=== PATIENT | female | born 1950 | race Caucasian/White ===

== ENCOUNTER 2016-05-31 09:45 | Emergency (ER) | payer MEDICARE, MEDICAID ==
--- NOTE | 2016-05-31 10:04 | ERNOTE ---
Neuro HPI ER Record Presenting Symptoms: confusion Time Seen by Provider: 05/31/16 09:45 Source: patient Exam Limitations: physical impairment Immunizations: IMMUNIZATION HX History of Influenza Vaccine Yes Allergies/Adverse Reactions: Allergies Allergy/AdvReac Type Severity Reaction Status Date / Time hydrochlorothiazide Allergy Other Verified 05/31/16 10:15 meloxicam Allergy Headache Verified 05/31/16 10:15 Home Medications: HOME MEDICATIONS Alprazolam 0.25 mg PO DAILY PRN 05/16/13 [Last Taken Unknown] Aspirin 81 mg PO DAILY 05/16/13 [Last Taken Unknown] Atorvastatin Calcium [Lipitor] 40 mg PO HS 05/31/16 [Last Taken Unknown] Cholecalciferol (Vitamin D3) [Vitamin D3] 2,000 unit PO DAILY 05/31/16 [Last Taken Unknown] Escitalopram Oxalate [Lexapro] 20 mg PO DAILY 05/31/16 [Last Taken Unknown] Lisinopril [Zestril] 40 mg PO DAILY 05/31/16 [Last Taken Unknown] Multivits,Ca,Minerals/Iron/FA [Women's Daily Formula Caplet] 1 each PO DAILY [Last Taken Unknown] amLODIPine BESYLATE [Norvasc] 7.5 mg PO DAILY 05/31/16 [Last Taken Unknown] - History of Present Illness Narrative: [facility] a [facility], then came to the radiology department for a mammogram where she seemed to be confused, the patient initially refused to be seen in the ER but then agreed to be evaluated. She is very vague about any complaints, can't give any focal concerns,maybe slight droop of her left eye lid. She had a CVA in 2012 that affected her vision , had a coil placed for an aneurysm at another occasion. Her fiance states that sometimes she acts like this when she needs to take a nap Date (Duration): 05/31/16 - Character of Deficits Baseline Cognition: Present: alert, oriented x 4 Baseline Gait: Present: walks w/o assistance Prior Treament: Reports: recently seen Review of Systems - Review of Systems Constitutional: Absent: recent illness EYE: Present: vision changes - chronic ENT: Absent: sore throat Respiratory: Absent: shortness of breath, cough Cardiology: Absent: chest pain Gastrointestinal/Abdominal: Absent: nausea, abdominal pain Genitourinary: Present: no symptoms reported Skin: Absent: rash - Patient's Past Medical History Patient History - Medical: Other - Vision loss Patient History - Cardiac/Respiratory: CVA/Stroke, Hypertension, Hyperlipidemia Patient History - Cancer: No Hx of Cancer Patient History - Surgical Procedures: Other - Intracranial stent and coil Patient History - Other: None - Social History Living Situations: home Smoking Status: Current every day smoker Have you smoked in the past 12 months: Yes - Immunizations History of Influenza Vaccine: Yes Physical Exam - Physical Exam General Appearance: Present: wd/wn, alert, no apparent distress Eye Exam: Normal inspection: bilateral, PERRL: bilateral, EOMI: bilateral Ears, Nose, Throat: Present: normal ENT inspection, normal pharynx Neck: Present: normal inspection, nontender, supple Respiratory: Present: no respiratory distress, normal breath sounds, no accessory muscle use, lungs clear Cardiovascular/Chest: Present: regular rate, rhythm, no murmur Gastrointestinal/Abdominal: Present: nontender, nondistended, soft Extremity Exam: Present: no edema Neurological Exam: Present: alert, oriented, no motor/sensory deficits, hvac manager II- XII nml as tested, normal cerebellar test - slow, but no tremor Skin Exam: Present: normal color, warm/dry Kiel Coma Scale - Assess Eye Opening: Spontaneous Motor: Obeys Commands Verbal: Oriented - Total Coma Scale Total: 15 ED Progress - Results and Orders Patient's Lab Results:: I have reviewed the patient's lab results. - Vital Signs Patient's Vital Signs:: I have reviewed the patient's vital signs. Vital Signs: Vital Signs 05/31/16 09:58 Temperature 37.2 C Pulse Rate 72 Respiratory 22 H Rate Blood Pressure 165/90 O2 Sat by Pulse 97 Oximetry - EKG EKG: NSR, other - Twave inversion V4-6 EKG read: Interp. by me - X-Ray X-Ray #1 X-Ray: chest - no acute Interpretation: Reviewed by me - CT/Ultrasound CT/Ultrasound Narrative: CT head discussed with radiology, old occipital changes, no acute changes - Progress/Reassessment Chief Complaint: CerebroVascular Accident Progress Note-Subjective: 05/31/16 09:58 CT results discussed with radiologist 05/31/16 10:47 patient comfortable, feels tired, explained results to patient and family 05/31/16 11:16 unchanged, patient ready to go home Departure Clinical Impression: Confusion - Departure Disposition: Home self-care Condition: Good Instructions: Confusion Additional Instructions: call your doctor for a follow up appointment Referrals: Niki Muhammad MD [Primary Care Provider] -
[2016-05-31 10:07] LABS: Hematocrit 47.5 % (37.0-47.0); Hemoglobin 15.9 gm/dL (12.5-16.0); Mean Cell Volume 91.9 fl (78-100); Mean Corpuscular Hemoglobin 30.8 pg (27-31); Mean Corpuscular Hgb Conc 33.5 g/dl (32-36); Mean Platelet Volume 9.5 fl (6.0-9.5); Neutrophil # 5.6 K/mm3 (1.3-6.0); Neutrophil % 62.1 % (42-75.0); Platelet Count 284 K/mm3 (150-450); Red Blood Count 5.17 M/mm3 (4.2-5.4); Red Cell Distribution Width 15.1 % (11.5-14.0)
[2016-05-31 10:18] LABS: Prothrombin Time (Patient) 10.9 Seconds (9.4-11.4)
[2016-05-31 10:19] LABS: Albumin * 4.2 gm/dl (3.4-5.0); Anion Gap 14.1 mmol/L (6.8-13.8); BUN/Creatinine Ratio 13.3 (9.0-21.6); Bilirubin, Total 0.5 mg/dL (0.0-1.1); Ca. Corrected For Albumin 8.9 mg/dL (8.4-10.2); Calcium * 9.4 mg/dL (7.9-10.9); Carbon Dioxide 27.8 mmol/L (24-32.6); Potassium 3.9 mmol/L (3.4-4.6); Total Protein 7.5 gm/dL (6.2-8.2)
[2016-05-31 10:27] LABS: INR 1.05 INR (0.90-1.10); Partial Thrombolplastin Time 27.1 Seconds (24-32)
--- OUTSIDE RECORDS SUMMARY | 2016-05-31 10:32 | XMS REPORT | Continuity of Care Document ---
:1950 Author Organization [facility] ([facility]) Address [address] [place] [address] Phone [phone] Care Team Providers Name Role Phone Ryan Foote Primary Care Provider [phone] Source Comments This disclosure is being made pursuant to the Care Everywhere program, applicable federal and state laws, and may not contain all informaitonavailable regarding this patient.[facility] ([facility]) Active Allergies and Adverse Reactions Allergen Noted Date Severity Reactions Comments Isosorbide Mononitrate 04/24/2010 OTHER Pt. States that she passes out with this medication. Current Medications Prescription Sig. Disp. Refills Start Date End Date Status methotrexate 2.5 mg Take 6 Tabs by mouth 24 Tab 5 07/18/2011 Active tablet every week. Indications: inflammatory arthritis folic acid 1 mg tablet Take 1 Tab by mouth 30 Tab 6 07/18/2011 Active daily. Indications: methotrexate use atorvastatin 40 mg Take 40 mg by mouth Active tablet every evening. ALPRAZolam (XANAX) Take 0.25 mg by mouth Active 0.25 mg tablet at bedtime as needed. citalopram 20 mg Take 20 mg by mouth Active tablet daily. acetaminophen 325 mg Take 2 Tabs by mouth 30 Tab 0 12/10/2012 Active tablet every 4 hours as needed. Indications: PAIN aspirin 325 mg tablet Take 1 Tab by mouth 30 Tab 2 12/10/2012 Active daily. Indications: cerebral stent clopidogrel (PLAVIX) Take 1 Tab by mouth 30 Tab 1 12/10/2012 Active 75 mg tablet daily. 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 10/02/2012 Right occipital lobe stroke 09/07/2012 HTN (hypertension) 03/29/2010 Chest pain 11/06/2009 Shortness of breath 11/06/2009 Dyslipidemia 11/06/2009 Fatigue 11/06/2009 Tobacco abuse 11/06/2009 Family history of colon cancer 11/06/2009 Social History Tobacco Use Types Packs/Day Years Used Date Current Every Day Smoker 1 50 Smokeless Tobacco: Never Used Tobacco Cessation:Counseling Given: Yes Comments: Alcohol Use Drinks/Week oz/Week Comments No Once a month Last Filed Vital Signs Vital Sign Reading Time Taken Blood Pressure 137/67 03/04/2013 10:47 AM [employer] Pulse 66 03/04/2013 10:47 AM [employer] Temperature 36.9 C (98.4 F) 12/10/2012 7:27 AM CDT Respiratory Rate 14 12/09/2012 10:59 AM CDT Height 1.651 m (5' 5") 03/04/2013 10:47 AM [employer] Weight 52.935 kg (116 lb 11.2 oz) 03/04/2013 10:47 AM [employer] Body Mass Index 19.42 03/04/2013 10:47 AM [employer] Oxygen Saturation 99% 03/04/2013 10:47 AM [employer] Plan of Care Health Maintenance Due Date Last Done Comments Hepatitis B Vaccine (1 of 3 - Primary Series) 1950 Tdap Vaccine 05/11/1962 Td Vaccine 05/11/1969 Pneumococcal Vaccine (1 of 1 - PPSV23) 05/11/1970 Cervical Cancer Screening 05/11/1981 Colonoscopy 05/11/2001 Mammogram 12/11/2010 12/11/2009 Zoster Vaccine 2011 Lipid Disorder Screening 11/06/2014 11/06/2009 Influenza Vaccine: Seasonal (#1) 10/09/2015 HCV Screening Completed 07/12/2011 Results from Last 3 Months Not on file
[2016-05-31 10:33] LABS: Urine Appearance Clear; Urine Bilirubin Negative (NEGATIVE); Urine Blood 10 /ul (NEGATIVE); Urine Color Yellow; Urine Ketone Negative (NEGATIVE); Urine Nitrite Negative (NEGATIVE); Urine Protein Negative (NEGATIVE); Urine Urobilinogen Normal (NORMAL); Urine pH 7.5 pH (5.0-7.0)
[2016-05-31 10:34] LABS: Urine Bacteria None Seen; Urine RBC TRACE /hpf (0-5); Urine WBC None Seen /hpf (0-5)
[2016-05-31 10:48] VITALS: BP 169/85
[2016-05-31 11:07] LABS: Cocaine Ur Negative (NEGATIVE); Urine Barbiturate Negative (NEGATIVE); Urine Benzodiazepines Negative (NEGATIVE); Urine Opiates Negative (NEGATIVE); Urine PCP Negative (NEGATIVE); Urine THC Negative (NEGATIVE)
== END 2016-05-31 11:18 | disposition home or self-care (01) ==
LOC: ER 09:45
DX: R41.0 Disorientation, unspecified (principal); H53.9 Unspecified visual disturbance; F17.210 Nicotine dependence, cigarettes, uncomplicated; I10 Essential (primary) hypertension; E78.5 Hyperlipidemia, unspecified